=== PATIENT | female | born 1955 | race Caucasian/White ===

== ENCOUNTER 2017-05-10 15:05 | Outpatient (CLI) | payer OTHER ==
--- NOTE | 2017-05-12 16:33 | Mammography Report ---
DIGITAL SCREENING MAMMOGRAM: 05/10/2017 CLINICAL INDICATION: A 61-year-old, for screening. COMPARISON: Films from [place], [place] dated 02/05/2016, 01/05/2016, 12/18/2014. TECHNIQUE: Routine CC and MLO projections were obtained of the breasts. FINDINGS: The breasts demonstrate fatty replacement bilaterally. Circumscribed nodule in the left up per outer quadrant is stable, previously documented to represent a cluster of cysts on ultrasound. No suspicious masses, clustered microcalcifications, or regions of architectural distortion are identif ied. IMPRESSION: BENIGN FINDINGS. RECOMMENDATION: ROUTINE ANNUAL SCREENING UNLESS OTHERWISE CLINICALLY INDICATED. BIRADS CATEGORY 2-BENIGN FINDINGS. STANDARD QUALIFYING STATEMENTS 1. This examination was reviewed with the aid of Computer-Aided Detection (CAD). 2. A negative or benign imaging report should not delay biopsy if clinically suspicious findings are present. Consider surgical consultation if warranted. More than 5% of cancers are not identified by i maging. 3. Dense breasts may obscure an underlying neoplasm. JOB #: [id number] EXT JOB #:[id number]
== END 2017-05-10 15:06 | disposition home or self-care (01) ==
LOC: DI 15:05
PROVIDERS: ATTEND Family Medicine
DX: Z12.31 Encounter for screening mammogram for malignant neoplasm of breast (principal)
CPT/HCPCS: 77067

== ENCOUNTER 2018-08-20 16:29 | Outpatient (CLI) | payer MEDICARE, OTHER ==
--- NOTE | 2018-08-22 10:11 | Ultrasound Report ---
Reason: RIGHT PAROTID GLAND Procedure Date: 08/20/2018 Accession Number: [id number] / [id number] Procedure: US - Head or Neck Soft Tissue CPT Code: FULL RESULT: EXAM: NECK ULTRASOUND EXAM DATE: 08/20/2018 05:12 PM. CLINICAL HISTORY: Right parotid gland palpable lump. COMPARISON: None. TECHNIQUE: Real-time sonographic imaging was performed by the contract lead utilizing color-flow. Multiple software support representative static images were saved for review. FINDINGS: Along the right jawline in the area of the palpable lump with pain for 1 month is a 1.6 x 0.9 x 0.4 cm ovoid soft tissue nodule with central vascularity by color Doppler. IMPRESSION: Nonspecific 1.6 cm mass with central vascularity. [facility]
== END 2018-08-20 16:30 | disposition home or self-care (01) ==
LOC: DI 16:29
PROVIDERS: ATTEND Specialist
DX: K11.8 Other diseases of salivary glands (principal)
CPT/HCPCS: 76536